=== PATIENT | male | born 1955 | race Caucasian/White ===

== ENCOUNTER 2016-04-25 18:26 | Emergency (ER) | payer MEDICARE ==
[~2016-04-25] VITALS: Ht 170.2 cm; Wt 106.0 kg
[2016-04-25 18:38] VITALS: BP 142/93; PULSE 99; RESP 17; TEMP 98.1; O2SAT 98
[2016-04-25] MEDS ORDERED: [UNRECOGNIZED DRUG - OTHER] (19:18)
[2016-04-25] MEDS ORDERED: TAMS0.4C4 PO (19:18)
[2016-04-25] MEDS ORDERED: ROSU1TAB6 PO (19:18)
[2016-04-25] MEDS ORDERED: LISI-515 PO (19:18)
[2016-04-25] MEDS ORDERED: ASPI325T PO (19:18)
[2016-04-25] MEDS ORDERED: RANI150T PO (19:18)
[2016-04-25] MEDS ORDERED: DULO1CAP PO (19:18)
--- NOTE | 2016-04-25 20:08 | PD ---
HPI Chief Complaint: Skin Problem Time Seen by Provider: 20:08 Travel History International Travel<30 days: No Contact w/Intl Traveler<30days: No Traveled to known affect area: No History of Present Illness HPI Patient is a 60-year-old male with a history of gout, hypertension, CVA presenting with left elbow pain and swelling. Present for 2 days. It is nontraumatic although he states he did hit it yesterday and it seemed to worsen the pain. It is posterior. He is able to flex and extend the elbow but this makes the pain worse. No anterior pain. He feels like the swelling has spread up his arm and into his forearm as well. He denies any weakness or paresthesias in his hand. He denies any fever, chills, nausea, vomiting or lymphadenopathy. Last gout flare was 2 months prior. He has never had gout in the elbow. He did have a similar problem with the left elbow 3 years ago in which the bursa was very swollen and he states he was diagnosed with phlebitis at that time. No history of infected joint. He is on aspirin daily, no anticoagulants. PFSH Past Medical History Cardiovascular Problems: Yes (LOOP RECORDER) Cerebrovascular Accident: Yes GERD: Yes Gout: Yes Hypertension: Yes Past Surgical History Other Surgery: Yes (MONITOR IN HEART) Social History Alcohol Use: Yes Tobacco Use: No Substance Use: No Allergies-Medications (Allergen,Severity, Reaction): Coded Allergies: Codeine (Verified Allergy, Severe, RASH, BREATHING PROBLEMS, 04/25/16) Reported Meds & Prescriptions Reported Meds & Active Scripts Active Percocet (Oxycodone-Acetaminophen) 5-325 mg Tab 1 Tab PO Q6H PRN Doxycycline Hyclate 100 Mg Tab 100 Mg PO BID 7 Days Bactrim DS (Sulfamethoxazole-Trimethoprim) 800-160 Mg Tab 1 Tab PO BID Reported Duloxetine DR (Duloxetine HCl) 20 Mg Capdr 20 Mg PO DAILY Rosuvastatin (Rosuvastatin Calcium) 10 Mg Tab 10 Mg PO HS Tamsulosin (Tamsulosin HCl) 0.4 Mg Cap 0.4 Mg PO HS Ranitidine (Ranitidine HCl) 150 Mg Tab 150 Mg PO BID Lisinopril 20 Mg Tab 20 Mg PO DAILY Aspirin 325 Mg Tab 325 Mg PO DAILY [Gout Out] Review of Systems Except as stated in HPI: all other systems reviewed are Neg Physical Exam Narrative GENERAL: Well-developed and well-nourished adult male in no acute distress. SKIN: Warm and dry. Good turgor without tenting. HEAD: Normocephalic and atraumatic. EYES: PERRL bilaterally, 5mm. EOMI bilaterally. No injection or icterus present. No proptosis. Lids without edema or erythema. ENT: Buccal mucosa pink and moist. Oropharynx free of erythema, tonsillar hypertrophy, masses, swelling, asymmetry and exudates. Uvula midline and airway patent. NECK: Supple, no midline tenderness, crepitus or step-offs. Trachea midline, no JVD. CARDIOVASCULAR: Regular rate and rhythm without murmurs, rubs, clicks or gallops. Radial pulses 2+ bilaterally. Capillary refill less than 2 seconds distal tip of all fingers of left hand. RESPIRATORY: Clear to auscultation bilaterally with symmetrical rise and fall, no distress or use of accessory muscles. LYMPH: Negative left epitrochlear, axillary lymphadenopathy. Negative bilateral supraclavicular, cervical and facial lymphadenopathy. MUSCULOSKELETAL: Left elbow has tenderness posteriorly around the olecranon bursitis. Is minimal tenderness over the olecranon itself. There is some edema in this area minimal erythema and warmth. No pain with palpation of the bilateral humeral condyles and anterior elbow. Patient can flex and extend the elbow fully but is painful to do so. The pain is only posterior when he flexes and extends. There does appear to be some edema of the forearm and mild erythema without warmth, the patient has sunburn on both forearms as well. No induration or fluctuance. Extremities without clubbing or cyanosis. No obvious deformities. NEUROLOGIC: CN II-XII grossly intact. Awake and alert. Strength 5/5 bilateral elbow flexion, elbow extension, wrist flexion and wrist extension. Sensation intact and strength 5/5 over radial, median, and ulnar nerve distributions bilaterally. Sensation intact to the distal tip of all fingers of left hand. Normal speech. PSYCHIATRIC: Appropriate mood and affect; insight and judgment normal. Data Data Last Documented VS Vital Signs Date Time Temp Pulse Resp B/P Pulse Ox O2 Delivery O2 Flow Rate FiO2 04/26/16 00:51 98.2 84 18 133/78 95 Room Air Orders Us Arm Venous Doppler (04/25/16 ) Us Arm Soft Tissue (2/11/17 ) Uric Acid (04/25/16 20:05) Complete Blood Count With Diff (04/25/16 20:05) Comprehensive Metabolic Panel (04/25/16 20:05) Elbow, Complete (4 Vws) (04/25/16 20:05) Morphine Inj (Morphine Inj) (04/25/16 20:15) Ondansetron Odt (Zofran Odt) (04/25/16 20:15) Morphine Inj (Morphine Inj) (04/25/16 22:15) Ketorolac Inj (Toradol Inj) (04/25/16 22:15) Lactic Acid (04/25/16 23:20) Blood Culture (04/25/16 23:20) Doxycycline Inj (Vibramycin Inj) (04/25/16 23:30) Labs Laboratory Tests Test 04/25/16 04/25/16 20:10 23:35 White Blood Count 7.2 TH/MM3 Red Blood Count 4.90 MIL/MM3 Hemoglobin 14.3 GM/DL Hematocrit 41.5 % Mean Corpuscular Volume 84.7 FL Mean Corpuscular Hemoglobin 29.2 PG Mean Corpuscular Hemoglobin 34.5 % Concent Red Cell Distribution Width 11.8 % Platelet Count 123 TH/MM3 Mean Platelet Volume 9.5 FL Neutrophils (%) (Auto) 64.3 % Lymphocytes (%) (Auto) 24.0 % Monocytes (%) (Auto) 7.9 % Eosinophils (%) (Auto) 3.1 % Basophils (%) (Auto) 0.7 % Neutrophils # (Auto) 4.6 TH/MM3 Lymphocytes # (Auto) 1.7 TH/MM3 Monocytes # (Auto) 0.6 TH/MM3 Eosinophils # (Auto) 0.2 TH/MM3 Basophils # (Auto) 0.1 TH/MM3 CBC Comment DIFF FINAL Differential Comment Sodium Level 144 MEQ/L Potassium Level 3.8 MEQ/L Chloride Level 107 MEQ/L Carbon Dioxide Level 28.7 MEQ/L Anion Gap 8 MEQ/L Blood Urea Nitrogen 15 MG/DL Creatinine 0.98 MG/DL Estimat Glomerular Filtration 79 ML/MIN Rate Random Glucose 128 MG/DL Uric Acid 6.0 MG/DL Calcium Level 8.6 MG/DL Total Bilirubin 0.9 MG/DL Aspartate Amino Transf 17 U/L (AST/SGOT) Alanine Aminotransferase 47 U/L (ALT/SGPT) Alkaline Phosphatase 78 U/L Total Protein 6.6 GM/DL Albumin 3.5 GM/DL Lactic Acid Level 1.0 mmol/L MDM Medical Decision Making Medical Screen Exam Complete: Yes Emergency Medical Condition: Yes Differential Diagnosis Olecranon bursitis versus gout versus cellulitis versus DVT versus septic joint unlikely Narrative Course Patient's 60-year-old male with a history of gout presenting with left elbow posterior pain and swelling. He is afebrile, nontoxic and is able to range the joint. His pain is only posterior he does have some swelling in the forearm. I discussed with Dr. Rodriguez who also examined the patient and agrees that this is likely a bursitis or gout however cephalitis possible considering some of the redness and swelling on the forearm. Given he is afebrile to move the joint septic joint is unlikely. He was given morphine and Zofran and ordered labs including uric acid by her suggestion. Ordered x-ray of the elbow as well as soft tissue ultrasound and venous Doppler for DVT. X-ray shows a spur at the triceps insertion, no effusions or fractures. CBC shows platelets of 123. Metabolic panel shows glucose of 128. Uric acid 6.0. Patient received little analgesia with the morphine after manipulation for ultrasound his pain was increased. He was given an additional 3 mg of morphine and some Toradol. Ultrasound pending. Patient was discussed with Dr. Rodriguez throughout his care, she also evaluated the patient. He was signed out to her pending ultrasound results. Diagnosis Primary Impression: Olecranon bursitis, left elbow Additional Impressions: Thrombocytopenia Hyperglycemia Scripts Oxycodone-Acetaminophen (Percocet)5-325 mg Tab1 Tab PO Q6H PRN (PAIN) #12 TAB Ref 0 Prov:Jacque Rodriguez MD 04/26/16 Doxycycline Hyclate 100 Mg [id number] Mg PO BID 7 Days Prov:Jacque Rodriguez MD 04/26/16 Sulfamethoxazole-Trimethoprim (Bactrim DS)800-160 Mg Tab1 Tab PO BID #20 TAB Ref 0 Prov:Jacque Rodriguez MD 04/26/16 Condition: Stable Isaac Razo III Apr 25, 2016 20:08
[2016-04-25] MEDS ORDERED: MORPHINE SULFATE 4 MG/ML INJ IV PUSH ONE ×2 (20:15→22:15)
[2016-04-25] MEDS ORDERED: ONDANSETRON ODT 4 MG TAB PO ONE (20:15)
[2016-04-25 20:20] LABS: AUTOMATED NEUTROPHIL # 4.6 TH/MM3 (1.8-7.7); BASOPHIL # 0.1 TH/MM3 (0-0.2); BASOPHIL % 0.7 % (0.0-2.0); EOSINOPHIL # 0.2 TH/MM3 (0-0.4); EOSINOPHIL % 3.1 % (0.0-4.0); HEMATOCRIT 41.5 % (39.0-51.0); HEMO FLAGS DIFF FINAL; LYMPHOCYTE # 1.7 TH/MM3 (1.0-4.8); MEAN CELL VOLUME 84.7 FL (80.0-100.0); MEAN CORPUSCULAR HEMOGLOBIN 29.2 PG (27.0-34.0); MEAN CORPUSCULAR HGB CONC 34.5 % (32.0-36.0); MONO % 7.9 % (0.0-8.0); NEUT % 64.3 % (16.0-70.0); PLATELET COUNT 123 TH/MM3 (150-450); RED CELL DISTRIBUTION WIDTH 11.8 % (11.6-17.2); WHITE BLOOD COUNT 7.2 TH/MM3 (4.0-11.0)
[2016-04-25 20:40] LABS: CHLORIDE 107 MEQ/L (98-107); POTASSIUM 3.8 MEQ/L (3.5-5.1); SODIUM (NA) 144 MEQ/L (136-145)
[2016-04-25 20:45] LABS: ANION GAP 8 MEQ/L (5-15); BICARBONATE 28.7 MEQ/L (21.0-32.0); BLOOD UREA NITROGEN 15 MG/DL (7-18)
[2016-04-25 20:48] LABS: ALT (GPT) 47 U/L (12-78); AST (GOT) 17 U/L (15-37); GLOMERULAR FILTRATION RATE 79 ML/MIN (>89)
[2016-04-25 20:50] LABS: TOTAL BILIRUBIN ADULT 0.9 MG/DL (0.2-1.0)
[2016-04-25 20:51] LABS: ALKALINE PHOSPHATASE 78 U/L (45-117)
--- NOTE | 2016-04-25 22:04 | RADHPO ---
EXAM DATE/TIME: 04/25/2016 20:29 [facility] COMPARISON: No previous studies available for comparison. INDICATIONS : Left elbow pain and swelling for two days. No known injury. MEDICAL HISTORY : None. SURGICAL HISTORY : None. ENCOUNTER: Initial ACUITY: 2 days PAIN SCORE: 8/10 LOCATION: Left elbow. FINDINGS: Multiple view examination of the left elbow demonstrates no soft tissue swelling, joint effusion, or fracture. The osseous structures are in normal alignment. Bony mineralization is normal. CONCLUSION: 1. Bone spur at triceps insertion. No acute findings. Marcus Díaz MD on April 25, 2016 at 22:02 Board Certified Radiologist. This report was verified electronically.
[2016-04-25 22:10] VITALS: BP 132/82; PULSE 94; RESP 18; O2SAT 100
[2016-04-25] MEDS ORDERED: KETOROLAC TROMETHAMINE 30 MG/ML (IVP) VIAL IV PUSH ONE (22:15)
--- NOTE | 2016-04-25 23:01 | RADHPO ---
EXAM DATE/TIME: 04/25/2016 21:40 [facility] COMPARISON: No previous studies available for comparison. INDICATIONS : Left arm edema and pain. MEDICAL HISTORY : Hypertension. Gastroesophageal reflux disease. CVA. SURGICAL HISTORY : Neck surgery. ENCOUNTER: Initial ACUITY: 3 days PAIN SCORE: 7/10 LOCATION: Left arm. FINDINGS: There is spontaneous flow documented in the brachial, basilic, cephalic, axillary, and subclavian vei ns. The vessels are compressible and augmentation response is documented. No filling defects are se en. The flow is phasic with respiration. Direction of flow in the jugular vein is caudal. CONCLUSION: No left upper extremity DVT. Isaac Francois MD on April 25, 2016 at 23:00 Board Certified Radiologist. This report was verified electronically.
--- NOTE | 2016-04-25 23:03 | RADHPO ---
EXAM DATE/TIME: 04/25/2016 21:51 [facility] COMPARISON: US ARM LEFT VENOUS DOPPLER, April 25, 2016, 21:40. INDICATIONS : Redness and swelling in left elbow. MEDICAL HISTORY : Hypertension. Gastroesophageal reflux disease. CVA. SURGICAL HISTORY : Neck surgery. ENCOUNTER: Initial ACUITY: 3 days PAIN SCORE: 7/10 LOCATION: Left elbow. AREA EVALUATED: Left elbow. FINDINGS: Soft tissue edema/non-organized fluid seen that is mainly subcutaneous in the region of the left elbo w. No loculated or drainable fluid. No mass seen. CONCLUSION: Edema of the left elbow area without organized abscess. Isaac Francois MD on April 25, 2016 at 23:00 Board Certified Radiologist. This report was verified electronically.
--- NOTE | 2016-04-25 23:20 | PD ---
Physical Exam Date Seen by Provider: Apr 25, 2016 Time Seen by Provider: 23:17 Narrative GENERAL: Well-developed well-nourished male in no acute distress no respiratory distress SKIN: Warm and dry. HEAD: Normocephalic. EYES: No scleral icterus. No injection or drainage. NECK: Supple, trachea midline. No JVD or lymphadenopathy. CARDIOVASCULAR: Regular rate and rhythm without murmurs, gallops, or rubs. RESPIRATORY: Breath sounds equal bilaterally. No accessory muscle use. GASTROINTESTINAL: Abdomen soft, non-tender, nondistended. MUSCULOSKELETAL: No cyanosis, LUE hand/forearm/elbow edema with redness tenderness and induration over the olecranon. Patient is able to demonstrate flexion and extension and pronation supination with pain overlying the olecranon with range of motion. Distally extremity is neurovascular tendon intact with brisk capillary refill less than 2 seconds per digit radial and ulnar arterial pulses are 2+ to palpation. There is no ascending erythema or axillary lymphadenopathy. . Data Data Last Documented VS Vital Signs Date Time Temp Pulse Resp B/P Pulse Ox O2 Delivery O2 Flow Rate FiO2 04/26/16 00:51 98.2 84 18 133/78 95 Room Air Orders Us Arm Venous Doppler (04/25/16 ) Us Arm Soft Tissue (04/25/16 ) Uric Acid (04/25/16 20:05) Complete Blood Count With Diff (04/25/16 20:05) Comprehensive Metabolic Panel (04/25/16 20:05) Elbow, Complete (4 Vws) (04/25/16 20:05) Morphine Inj (Morphine Inj) (04/25/16 20:15) Ondansetron Odt (Zofran Odt) (04/25/16 20:15) Morphine Inj (Morphine Inj) (04/25/16 22:15) Ketorolac Inj (Toradol Inj) (04/25/16 22:15) Lactic Acid (04/25/16 23:20) Blood Culture (04/25/16 23:20) Doxycycline Inj (Vibramycin Inj) (04/25/16 23:30) Labs Laboratory Tests Test 04/25/16 04/25/16 20:10 23:35 White Blood Count 7.2 TH/MM3 Red Blood Count 4.90 MIL/MM3 Hemoglobin 14.3 GM/DL Hematocrit 41.5 % Mean Corpuscular Volume 84.7 FL Mean Corpuscular Hemoglobin 29.2 PG Mean Corpuscular Hemoglobin 34.5 % Concent Red Cell Distribution Width 11.8 % Platelet Count 123 TH/MM3 Mean Platelet Volume 9.5 FL Neutrophils (%) (Auto) 64.3 % Lymphocytes (%) (Auto) 24.0 % Monocytes (%) (Auto) 7.9 % Eosinophils (%) (Auto) 3.1 % Basophils (%) (Auto) 0.7 % Neutrophils # (Auto) 4.6 TH/MM3 Lymphocytes # (Auto) 1.7 TH/MM3 Monocytes # (Auto) 0.6 TH/MM3 Eosinophils # (Auto) 0.2 TH/MM3 Basophils # (Auto) 0.1 TH/MM3 CBC Comment DIFF FINAL Differential Comment Sodium Level 144 MEQ/L Potassium Level 3.8 MEQ/L Chloride Level 107 MEQ/L Carbon Dioxide Level 28.7 MEQ/L Anion Gap 8 MEQ/L Blood Urea Nitrogen 15 MG/DL Creatinine 0.98 MG/DL Estimat Glomerular Filtration 79 ML/MIN Rate Random Glucose 128 MG/DL Uric Acid 6.0 MG/DL Calcium Level 8.6 MG/DL Total Bilirubin 0.9 MG/DL Aspartate Amino Transf 17 U/L (AST/SGOT) Alanine Aminotransferase 47 U/L (ALT/SGPT) Alkaline Phosphatase 78 U/L Total Protein 6.6 GM/DL Albumin 3.5 GM/DL Lactic Acid Level 1.0 mmol/L [facility] Medical Record Reviewed: Yes Supervised Visit with MAYKEL: Yes Interpretation(s) Vital Signs Date Time Temp Pulse Resp B/P Pulse Ox O2 Delivery O2 Flow Rate FiO2 04/26/16 00:51 98.2 84 18 133/78 95 Room Air 04/25/16 23:52 18 04/25/16 23:52 18 04/25/16 23:51 98 18 134/68 98 Room Air 04/25/16 22:10 94 18 132/82 100 Room Air 04/25/16 20:25 18 04/25/16 18:38 98.1 99 17 142/93 98 CBC & BMP Diagram 04/25/16 20:10 Last Impressions Elbow X-Ray 04/25/162004 Signed Impressions: Service Date/Time: Monday, April 25, 2016 20:29 - CONCLUSION: 1. Bone spur at triceps insertion. No acute findings. Marcus Díaz MD Upper Extremity Ultrasound 04/25/16 0000 Signed Impressions: Service Date/Time: Monday, April 25, 2016 21:51 - CONCLUSION: Edema of the left elbow area without organized abscess. Isaac Francois MD Upper Extremity Ultrasound 04/25/16 0000 Signed Impressions: Service Date/Time: Monday, April 25, 2016 21:40 - CONCLUSION: No left upper extremity DVT. Isaac Francois MD Differential Diagnosis Cellulitis, DVT, olecranon bursitis, gouty arthritis; patient does not have pain in the joint reportedly with range of motion but still to consider septic arthritis Narrative Course Accepted in transfer of care from KARTIK Razo Patient continues to complain of pain in the left elbow forearm and hand specifically complain of pain overlying the olecranon process and at the bursa Patient feels much improved and is stable for outpatient management with identified cellulitis of the left forearm and olecranon bursitis. Patient is desirous of being discharged to home as a trial of outpatient oral antibiotic and does not want to be admitted at this time although this was offered to the patient with spouse at bedside. Patient is encouraged to monitor temperature closely and return to the emergency department immediately for fever while on antibiotic as may require ongoing IV antibiotics. Diagnosis Primary Impression: Cellulitis Qualified Code: L03.114 - Cellulitis of left upper extremity Additional Impressions: Olecranon bursitis, left elbow Thrombocytopenia Hyperglycemia Referrals: Primary Care Physician call for appointment Patient Instructions: Narcotic given in the ED, General Instructions Med/Other Pt SpecificInfo: Prescription(s) given Scripts Oxycodone-Acetaminophen (Percocet)5-325 mg Tab1 Tab PO Q6H PRN (PAIN) #12 TAB Ref 0 Prov:Jacque Rodriguez MD 04/26/16 Doxycycline Hyclate 100 Mg [id number] Mg PO BID 7 Days Prov:Jacque Rodriguez MD 04/26/16 Sulfamethoxazole-Trimethoprim (Bactrim DS)800-160 Mg Tab1 Tab PO BID #20 TAB Ref 0 Prov:Jacque Rodriguez MD 04/26/16 Disposition: 01 DISCHARGE HOME Condition: Stable Jacque Rodriguez MD Apr 25, 2016 23:20
[2016-04-25] MEDS ORDERED: DOXYCYCLINE INJ 100 MG in SODIUM CHLORIDE 0.9% INJ 100 ML IV ONE (23:30)
[2016-04-25 23:51] VITALS: BP 134/68; PULSE 98; RESP 18; O2SAT 98
[2016-04-26 00:51] VITALS: BP 133/78; PULSE 84; RESP 18; TEMP 98.2; O2SAT 95
[2016-04-26] MEDS ORDERED: BACT800T5 PO (01:05)
[2016-04-26] MEDS ORDERED: DOXY100T PO (01:05)
[2016-04-26] MEDS ORDERED: PERC5TAB12 PO (01:05)
== END 2016-04-26 01:16 | disposition home or self-care (01) ==
LOC: PHEFT 18:26
DX: L03.114 Cellulitis of left upper limb (principal); M70.22 Olecranon bursitis, left elbow; D69.6 Thrombocytopenia, unspecified; R73.9 Hyperglycemia, unspecified; I10 Essential (primary) hypertension; Z87.39 Personal history of other diseases of the musculoskeletal system and connective tissue; Z86.73 Personal history of transient ischemic attack (TIA), and cerebral infarction without residual deficits; Z86.79 Personal history of other diseases of the circulatory system; Z87.19 Personal history of other diseases of the digestive system
CPT/HCPCS: 73080; 76882; 80053; 83605; 84550; 85025; 87040; 93971; 96365; 96375; 96376; 99284; J1885; J2270